=== PATIENT | male | born 1975 | race Caucasian/White ===

== ENCOUNTER 2021-09-25 15:47 | Emergency (ER) | payer OTHER, SELFPAY ==
[2021-09-25] VITALS (13 sets, daily range): BP systolic 118–138; BP diastolic 78–92; PULSE 90–109; RESP 14–221; TEMP 36.3; O2SAT 96–100
--- NOTE | ~2021-09-25 | CT_ITS ---
EXAMINATION: CT abdomen pelvis wo con DATE: 09/25/2021 18:19 INDICATION: Left flank pain TECHNIQUE: Computed tomography (CT) of the abdomen and pelvis was performed without intravenous contr ast. The dose-length product (DLP) was 1332.47 mGy-cm. Automated exposure control and iterative recon struction technique were employed. COMPARISON: None FINDINGS: The lung bases are clear. The heart size is normal. The liver, pancreas, gallbladder, and a drenal glands are normal. The kidneys are unremarkable. No stones are identified in the kidneys, uret ers, or bladder. There is no hydronephrosis or hydroureter. Splenomegaly is noted. No pathologically enlarged abdominal or pelvic lymph nodes are identified. There is no free intraperitoneal gas or evid ence of bowel obstruction. Colonic diverticulosis is present without evidence of diverticulitis. The appendix is normal. There is an acute, minimally displaced fracture of the left 12th rib posteriorly. IMPRESSION: 1. Minimally displaced acute posterior left 12th rib fracture. 2. No acute abnormality of the abdomen or pelvis. 3. Splenomegaly. Reviewed, dictated and finalized at location F. P BILLING COORDINATOR
--- NOTE | ~2021-09-25 | XR_ITS ---
EXAMINATION: XR chest 1V portable INDICATION: Weakness, transient alteration of awareness TECHNIQUE: Portable AP chest at 1633 hours COMPARISON: None available FINDINGS: There are minimal opacities of the right lung base. No pleural effusion or pneumothorax is identified. The cardiomediastinal silhouette is normal. IMPRESSION: 1. Right basilar opacities, consistent with atelectasis versus pneumonia. Reviewed, dictated and finalized at location F. [employer] TECHNICAL
--- NOTE | ~2021-09-25 | CT_ITS ---
EXAMINATION: CT brain wo con INDICATION: Transient alteration of awareness COMPARISON: None TECHNIQUE: Standard unenhanced head CT. The dose-length product (DLP) was 681.00 mGy-cm. The mA was a djusted according to patient size. Iterative reconstruction technique was employed. FINDINGS: There is no intracranial hemorrhage, acute infarction, or abnormal mass lesion. The ventric les are normal. There is no abnormal mass effect or midline shift. The dejesus-white matter differentiat ion is normal. The basal cisterns are patent. The orbits are normal. The paranasal sinuses, mastoids and calvarium are normal. IMPRESSION: 1. No acute intracranial abnormality. Reviewed, dictated and finalized at location F. ING MILL OPERATOR
--- NOTE | 2021-09-25 16:18 | ECG_ITS ---
Measurements Intervals Vivian Rate: 90 P: 25 [place]: 157 QRS: 29 QRSD: 93 T: 11 QT: 352 QTc: 432 Interpretive Statements SINUS RHYTHM LOW QRS VOLTAGE IN PRECORDIAL LEADS MINIMAL Q WAVES- INFERIOR LEADS BASELINE ARTIFACT- I, II, V1, V3-V6 BORDERLINE ECG Electronically Signed On 09-25-2021 18:23:44 TAKER OUT by Devon Muniz D.O.
--- NOTE | 2021-09-25 16:27 | ED.SEIZURE ---
HPI - Seizure General Chief Complaint: Seizure Stated Complaint: Seizure like activity. Time Seen by Provider: 09/25/21 16:00 Source: patient and family () Mode of arrival: EMS Limitations: clinical condition History of Present Illness HPI Narrative: This is a 46 year old male who presents from home for evaluation of seizure activity . Patient's states she found patient in the tub groaning and having seizure like activity. Patient was postictal on EMS arrival. He does not remember getting in tub. He reports waking up this morning with left frontal headache. He also reports having an issues with strong smells prior to events. He states he had a seizure 2012 when he was stationed in [employer]. He reports having an unremarkable evaluation and it was thought to be due to taking tramadol. He does not take any medications any more. He reports getting plenty of sleep. He denies drug use and only occasional alcohol use. His states he only takes aleve for his chronic back pain. Patient is having left flank pain today this is different from his chronic back pain. He states his whole body hurts. Seizure History: Yes Related Data Allergies Allergy/AdvReac Type Severity Reaction Status Date / Time No Known Allergies Allergy Verified 09/25/21 15:41 Review of Systems Review of Systems: All systems reviewed & are unremarkable except as noted in HPI and below PMFSH Past Medical History Medical History (Updated 09/25/21 @ 19:32 by Fabi Duncan MD) Seizure Surgical History Surgical History (Updated 09/25/21 @ 16:36 by Fabi Duncan MD) H/O foot surgery Social History Social History (Updated 09/25/21 @ 16:36 by Fabi Duncan MD) Smoking status: Never smoker Alcohol intake: current Substance use: never Exam Const: General: no acute distress and alert Orientation/consciousness: patient oriented x3 HENMT: Head: normocephalic and atraumatic Ears: TM's normal bilaterally Face and sinus: normal facial exam, sinuses nontender and face symmetric Mouth: Yes Normal oral and palatal mucosa present, Yes oropharynx normal, Yes moist mucous membranes and Yes other (small contusions to tongue) Throat: posterior oropharynx normal Eyes: Pupils: Equal, round and reactive pupils present EOM: EOMs intact bilaterally Chest: Chest palpation & inspection: normal inspection of the chest Resp: Effort & Inspection: normal respiratory effort and no retractions Auscultation: clear to auscultation bilaterally Cardio: Rate: regular rate Rhythm: regular rhythm Heart sounds: no murmurs GI: GI Palp: Yes Soft to palpation, No Tenderness to palpation present (GI) and No Guarding due to palpation present (GI) Auscultation: normal bowel sounds : General: Yes CVA tenderness on the left Skin: Other: petechia to face and chest Neuro: General: patient oriented x3, moves all extremities and CN's II-XI intact bilaterally Extrem: General: normal to inspection Psych: Mental Status: mental status grossly normal Affect: normal affect Course Reevaluation(s) Reevaluation #1: I Discussed with patient that his labs and imaging are unremarkable other than rib fracture. Patient is neurologically intact and back to baseline. I discussed he will need to follow up with neurology and get outpatient evaluation. Date: 09/25/21 Time: 19:26 Vital Signs Vital signs: Vital Signs Temperature 97.4 F L 09/25/21 15:22 Pulse Rate 102 H 09/25/21 15:22 Respiratory Rate 18 09/25/21 15:22 Blood Pressure 132/92 H 09/25/21 15:22 Pulse Oximetry 98 09/25/21 15:22 Temperature 97.4 F L 09/25/21 15:22 Pulse Rate 90 09/25/21 18:38 Respiratory Rate 18 09/25/21 18:38 Blood Pressure 135/89 09/25/21 18:38 Pulse Oximetry 99 09/25/21 18:38 MDM - Seizure Lab Data Attestation: I reviewed the patient's lab results. Result diagrams: 09/25/21 16:44 09/25/21 16:44 L
[2021-09-25] MEDS: SODIUM CHLORIDE 0.9% IV 1,000 ML 999 ML IV CONT (16:32)
[2021-09-25 16:53] LABS: Basophils Percent Auto 0.2 % (0.2-1.2); Eosinophils Absolute Auto 0.1 K/mm3 (0-0.3); Eosinophils Percent Auto 0.6 % (0-4.4); Hemoglobin 14.5 g/dL (14.0-18.0); Immature Granulocyte Absolute 0.05 K/mm3 (0.00-0.031); Immature Granulocyte Percent A 0.5 % (0-0.5); Immature Platelet Fraction Pct 6.3 % (0.9-11.2); Lymphocytes Absolute Auto 0.89 K/mm3 (0.9-3.2); Lymphocytes Percent Auto 9.6 % (18.3-44.2); Mean Corpuscular HGB Conc 33.7 g/dl (32-36); Mean Corpuscular Volume 88.8 fl (80-100); Mean Platelet Volume 11.5 fl (7.4-10.4); Monocytes Absolute Auto 0.5 K/mm3 (0.1-0.6); Monocytes Percent Auto 5.3 % (2.6-8.5); Neutrophils Absolute Auto 7.8 K/mm3 (1.3-6.7); Neutrophils Percent Auto 83.8 % (45.5-73.1); Platelet Count Result 116 k/mm3 (150-375); Red Blood Count 4.84 M/mm3 (4.6-6.20); Red Cell Distribution Width 13.5 % (11.5-14.5); White Blood Count 9.3 K/mm3 (4.5-10.0)
[2021-09-25 17:02] LABS: INR 1.1; Prothrombin Time 13.9 Seconds (11.1-14.7)
[2021-09-25 17:04] LABS: Ethanol < 10 mg/dL (<10)
[2021-09-25 17:08] LABS: Alanine Aminotransferase 28 U/L (4-50); Albumin Level 4.5 g/dL (3.5-5.1); Alkaline Phosphatase 73 U/L (38-126); Anion Gap 12 mmol/L (8-16); Aspartate Amino Transferase 34 U/L (17-59); Bilirubin,Total 1.1 mg/dL (0.2-1.3); Blood Urea Nitrogen 14 mg/dL (9-20); Calcium 9.1 mg/dL (8.4-10.2); Carbon Dioxide 23 mmol/L (22-30); Chloride 103 mmol/L (98-107); Creatine Kinase 82 U/L (55-170); Estimated CRCL calculation 104 ml/min; Estimated Glomerular Filt Rate > 60; Glucose 116 mg/dL (65-110); Sodium 138 mmol/L (137-145)
[2021-09-25] MEDS: KETOROLAC 30 MG/ML VIAL (*BKC) IV PUSH (17:39)
[2021-09-25 17:45] LABS: Add Urine Microscopic? NO; Appearance Urine Clear (Clear); Bilirubin Urine Negative (Negative); Blood Urine Negative (Negative); Color Urine Yellow (Yellow); Glucose Urine UA Negative (Negative); Ketones Urine Negative (Negative); Leukocyte Esterase Ur Negative LEU/UL (Negative); Nitrate Urine Negative (Negative); Protein Urine Negative (Negative); Specific Grav Ur 1.013 (1.001-1.035); Urobilinogen Urine Negative mg/dL (<2.0)
[2021-09-25 18:06] LABS: Amphetamine Screen Urine Negative (Negative); Barbiturate Screen Urine Negative (Negative); Benzodiazepines Screen Urine Negative (Negative); Cannabinoid Screen Urine Negative (Negative); Cocaine Screen Urine Negative (Negative); Methadone Screen Urine Negative (Negative); Opiate Screen Urine Negative (Negative); Phencyclidine Screen Urine Negative (Negative)
== END 2021-09-25 20:20 | disposition home or self-care (01) ==
PROVIDERS: Emergency Provider General Practice
DX: R56.9 Unspecified convulsions (principal); S22.32XA Fracture of one rib, left side, initial encounter for closed fracture; R16.1 Splenomegaly, not elsewhere classified; R94.31 Abnormal electrocardiogram [ECG] [EKG]; X58.XXXA Exposure to other specified factors, initial encounter
CPT/HCPCS: 36415; 70450; 71045; 74176; 80053; 80307; 81003; 82550; 85025; 85055; 85610; 85730; 93005; 96361; 96374; 99284; J1885; J7030

== ENCOUNTER 2022-03-28 07:13 | Outpatient (CLI) | payer OTHER, SELFPAY ==
--- NOTE | 2022-03-28 10:46 | P.NEURO_ITS ---
Neurology EEG Report General Information Date of Study: 03/28/22 TEST eeg DIAGNOSIS seizures CONDITION OF RECORDING Awake drowsy and sleep EEG NUMBER [id number] CLINICAL HISTORY patient reported he had an episode of losing consciousness about 6 months ago EEG DESCRIPTION basic resting occipital frequency consists of large amount of well-organized medium voltage 9 to 11 hertz per 2nd alpha admixed with small amount of low- voltage 15 to 18 hertz per 2nd beta. Low-voltage beta activity seen diffusely admixed with waxing and waning posterior alpha rhythm during drowsiness. Bilateral symmetrical sleep activity seen during sleep. Hyperventilation not done. Photic stimulation produced normal drive. Non paroxysmal. Nonfocal. Nonlateralizing. IMPRESSION Normal rapid
== END 2022-03-28 07:14 | disposition home or self-care (01) ==
DX: G40.89 Other seizures (principal)
CPT/HCPCS: 95816

== ENCOUNTER 2023-08-05 09:56 | Outpatient (CLI) | payer BC, SELFPAY ==
[2023-08-05 10:46] LABS: Basophils Percent Auto 0.5 % (0.2-1.2); Eosinophils Absolute Auto 0.2 K/mm3 (0-0.3); Eosinophils Percent Auto 2.5 % (0-4.4); Hematocrit 39.2 % (42.0-52.0); Hemoglobin 12.4 g/dL (14.0-18.0); Immature Granulocyte Absolute 0.03 K/mm3 (0.00-0.031); Immature Granulocyte Percent A 0.5 % (0-0.5); Immature Platelet Fraction Pct 5.6 % (0.9-11.2); Lymphocytes Absolute Auto 1.24 K/mm3 (0.9-3.2); Lymphocytes Percent Auto 19.3 % (18.3-44.2); Mean Corpuscular HGB Conc 31.6 g/dl (32-36); Mean Corpuscular Hemoglobin 27.4 pg (26-34); Mean Corpuscular Volume 86.5 fl (80-100); Mean Platelet Volume 11.7 fl (7.4-10.4); Monocytes Absolute Auto 0.3 K/mm3 (0.1-0.6); Monocytes Percent Auto 4.5 % (2.6-8.5); Neutrophils Absolute Auto 4.7 K/mm3 (1.3-6.7); Neutrophils Percent Auto 72.7 % (45.5-73.1); Platelet Count Result 125 k/mm3 (150-375); Red Blood Count 4.53 M/mm3 (4.6-6.20); Red Cell Distribution Width 13.9 % (11.5-14.5); White Blood Count 6.4 K/mm3 (4.5-10.0)
[2023-08-05 10:56] LABS: Alanine Aminotransferase 32 U/L (6-50); Albumin Level 4.3 g/dL (3.5-5.1); Alkaline Phosphatase 75 U/L (38-126); Anion Gap 9 mmol/L (8-16); Aspartate Amino Transferase 36 U/L (17-59); Bilirubin,Total 0.7 mg/dL (0.2-1.3); Blood Urea Nitrogen 13 mg/dL (9-20); Carbon Dioxide 25 mmol/L (22-30); Chloride 105 mmol/L (98-107); Cholesterol 162 mg/dL (0-200); Estimated Glomerular Filt Rate > 60; Glucose 123 mg/dL (65-110); HDL Direct 41 mg/dL; Potassium 4.4 mmol/L (3.4-5.0); Sodium 139 mmol/L (137-145); Triglycerides 236 mg/dL (<150); Uric Acid 6.9 mg/dL (3.5-8.5)
[2023-08-05 11:07] LABS: LDL Cholesterol Direct 56 mg/dL
[2023-08-05 11:32] LABS: Hemoglobin A1C 5.8 % (<5.7)
== END 2023-08-05 09:57 | disposition home or self-care (01) ==
PROVIDERS: PCP Family Medicine; Visit Provider Family Medicine
DX: Z00.00 Encounter for general adult medical examination without abnormal findings (principal); Z13.220 Encounter for screening for lipoid disorders; Z13.1 Encounter for screening for diabetes mellitus; M25.50 Pain in unspecified joint; I10 Essential (primary) hypertension
CPT/HCPCS: 36415; 80053; 80061; 83036; 84443; 84550; 85025; 85055

== ENCOUNTER 2023-09-26 11:00 | Outpatient (CLI) | payer BC, SELFPAY ==
--- NOTE | ~2023-09-26 | XR_ITS ---
XR chest 2V DATE: 09/26/2023 11:16 INDICATION: Chest pain TECHNIQUE: 2 views COMPARISON: None FINDINGS: There is mild to moderate elevation of the right leaf of the diaphragm. The lungs appear cl ear. Heart size is within normal range. No hilar or mediastinal enlargement. IMPRESSION: No active cardiopulmonary disease Reviewed, dictated and finalized at location L. ONE DIVER
== END 2023-09-26 11:01 ==
PROVIDERS: PCP Physician Assistant; Visit Provider Physician Assistant
DX: R07.9 Chest pain, unspecified (principal)
CPT/HCPCS: 71046